=== PATIENT | male | born 1950 | race Caucasian/White ===

== ENCOUNTER 2016-07-29 18:37 | Emergency (ER) | payer OTHER ==
[2016-07-29 22:50] LABS: HEMOGLOBIN 14.2 gm/dl (14.0-17.5); RED BLOOD COUNT 4.61 M/UL (4.20-5.50); WHITE BLOOD COUNT 8.8 K/UL (4.5-11.0)
[2016-07-29 23:10] LABS: BUN/CREATININE RATIO 27 (0-10)
== END 2016-07-30 01:50 | disposition home or self-care (01) ==
LOC: ER1 18:37
PROVIDERS: Emergency Medicine
DX: J40 Bronchitis, not specified as acute or chronic (principal); Z88.8 Allergy status to other drugs, medicaments and biological substances; Z79.899 Other long term (current) drug therapy
CPT/HCPCS: 36415; 71020; 80053; 82550; 82553; 83874; 84443; 84484; 85025; 93005; 94664; 96374; 99284; J2930